=== PATIENT | male | born 1965 | race Hispanic/Latino ===

== ENCOUNTER → 2018-04-11 | Outpatient (CLI) | payer OTHER ==
[~2018-04-11] VITALS: Ht 175.3 cm; Wt 93.0 kg
[~2018-04-11] MED LIST: CYCLOBENZAPRINE5 MG PO; NAPROSYN500 MG PO; NEXIUM40 MG PO
== END | disposition home or self-care (01) ==
LOC: AMB 11:21
DX: Z12.11 Encounter for screening for malignant neoplasm of colon (principal); D12.0 Benign neoplasm of cecum; K62.1 Rectal polyp; R12 Heartburn; Z88.6 Allergy status to analgesic agent
CPT/HCPCS: 88305; J2405